=== PATIENT | female | born 1955 | race Caucasian/White ===

== ENCOUNTER 2017-04-18 06:06 | Inpatient (IN) ==
--- NOTE | 2017-04-18 09:54 | General Surgery Consult Note ---
<Olivier Seay - Last Filed: 04/18/17 11:10> Date of Encounter: 04/18/17 Time of Encounter: 09:51 Assessment and Plan (1) Partial small bowel obstruction Current Visit: Yes Status: Acute [facility] CT 04/17: findings suspicious for small bowel obstruction, possible thickened mucosa/wall in the distal stomach. Patient is currently hemodynamically stable with active bowel sounds, and flatulence. - serial abdominal exam - conservative care - bowel rest; NPO diet - NG tube placement - IVF started History of Present Illness Consult date: 04/18/17 Reason for consult: abdominal pain Requesting physician: Catrachito Mack History of present illness: 61 Year old female w/ pmh of COPD, HLD, arthritis, open cholecysectomy, open appendectomy, and open hysterectomy presented to [facility] ED with a 1 day history of Abdominal pain. At [facility], CT abd/pelvis was performed and transferred to [place] due to suspicion of small bowel obstruction. Patient states the pain started yesterday and is sharp and constant. Pain radiates to her Right upper quadrant. She also has associated nausea, vomiting, "feeling hot", and thirst. She states she does not feel hungry but she ate dinner last night without much difficulty. Patient has passed gas last night, but has not had a bowel movement since the day before yesterday. Patient states her abdomen is "more full than usual". Patient denies fever, palpitation, SOB. In the ED, NG tube was attempted twice without success. She states she previously has been told that she had "calcium" build up in her Abdominal aorta in which she takes ASA81. Patient is also on lipitor 40 for high cholesterol. Her last colonoscopy was 3-4 years ago and she was told that she needed a follow up in a year but she was unable to make it. 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 Patient smokes 1 pack a day for the last 40 years. Patient denies drugs or EtOH. Past Med Surg Social Fam HX - Past Medical History Medical history: COPD Psychiatric history: no psych history - Social History Smoking Status: Current every day smoker Packs per day: 1/2- 1 pack a day Smokeless Tobacco Status: No Alcohol use: none Drug use: none Medications and Allergies 3 Allergy/AdvReac Type Severity Reaction Status Date / Time codeine Allergy Chest Pain Verified 04/18/17 09:04 Hydromorphone [From Dilaudid] Allergy Itching Verified 04/18/17 09:04 levofloxacin [From Levaquin] Allergy Hives Verified 04/18/17 09:04 sulfamethoxazole Allergy Hives Verified 04/18/17 09:04 [From Bactrim] trimethoprim [From Bactrim] Allergy Hives Verified 04/18/17 09:04 Review of Systems All systems PM: A 10-system review of systems was performed and is negative for pertinent findings except as documented above in the HPI. - Constitutional as per HPI - EENT Nose, mouth and throat: dry mouth, no abnormal hearing, no dizziness, no dysphagia, no epistaxis, no headache(s) - Cardiovascular no chest pain, no chest pain at rest, no dyspnea, no dyspnea on exertion, no leg edema, no palpitations - Respiratory no cough, no dyspnea, no dyspnea on exertion, no wheezing, no chest congestion - Gastrointestinal abdominal pain, bloating, nausea, vomiting, no belching, no change in bowel habits, no change in stool character, no coffee ground emesis, no constipation, no cramping, no diarrhea, no dyspepsia, no dysphagia, no excessive flatus, no fecal incontinence, no heartburn, no hematemesis, no hematochezia, no loose stools, no melena - Genitourinary Genitourinary: other (prior hysterectomy) Menstruation: as per HPI - Musculoskeletal muscle cramps (left calf) - Integumentary no acne, no alopecia, no erythema, no lesions, no pruritus, no striae, no swelling, no wounds - Neurological no confusion, no convulsions, no dizziness, no loss of vision, no restless legs , no syncope, no vertigo - Psychiatric no anhedonia, no anxiety, no change in appetite, no change in libido, no confusion, no depression, no difficulty concentrating, no irritability - Allergic/Immunologic seasonal rhinorrhea General Surgery Exam Initial Vital Signs Temp Pulse Resp BP Pulse Ox 98.3 F 52 16 129/65 95 04/18/17 08:08 04/18/17 08:08 04/18/17 08:08 04/18/17 08:08 04/18/17 08:08 - General physical appearance well developed, well nourished, moderate distress, severe pain, obese - Eyes normal ocular movement - ENT normal mucosa, no hearing loss, nasal discharge - Neck no masses, no bruits, no venous distension - Respiratory normal expansion, normal respiratory effort, clear to percussion, clear to auscultation - Cardiovascular Cardiovascular exam: Present: RRR, 15, 16 - Abdomen Abdomen general surgery: Present: bowel sounds present, tympanic, distended, tender, guarding (voluntary guarding. no tenderness on percussion.), surgical scars (midline and right lower quadrant). Absent: rebound, rigid Abdominal Tenderness: Present: epigastic, RUQ - Integumentary Integumentary general surgery: Present: warm and dry, no abnormal pigmentation - Neurologic Present: CN 2-12 grossly intact, normal coordination, normal sensation - Musculoskeletal Present: normal gait, normal posture - Psychiatric Psychiatric general surgery: Present: appropriate, oriented to person, oriented to place, oriented to time, speech is normal, memory intact Exam Initial Vital Signs Temp Pulse Resp BP Pulse Ox 98.3 F 52 16 129/65 95 04/18/17 08:08 04/18/17 08:08 04/18/17 08:08 04/18/17 08:08 04/18/17 08:08 Results - Labs 04/18/17 10:35 04/18/17 10:35 All other labs normal. Consult Discharge Plan - Plan Referrals: Mattie Lora MD [Primary Care Provider] - <Will Stark - Last Filed: 04/18/17 11:53> Date of Encounter: 04/18/17 Review of Systems All systems PM: A 10-system review of systems was performed and is negative for pertinent findings except as documented above in the HPI. General Surgery Exam Initial Vital Signs Temp Pulse Resp BP Pulse Ox 98.3 F 52 16 129/65 95 04/18/17 08:08 04/18/17 08:08 04/18/17 08:08 04/18/17 08:08 04/18/17 08:08 Exam Initial Vital Signs Temp Pulse Resp BP Pulse Ox 98.3 F 52 16 129/65 95 04/18/17 08:08 04/18/17 08:08 04/18/17 08:08 04/18/17 08:08 04/18/17 08:08 Results - Labs 04/18/17 10:35 04/18/17 10:35 Abnormal lab results Hgb 11.4 g/dL (11.5-15.4) L 04/18/17 10:35 MCH 27.7 pg (28.0-33.3) L 04/18/17 10:35 MCHC 31.4 g/dL (31.6-35.5) L 04/18/17 10:35 RDW 15.4 % (11.5-14.5) H 04/18/17 10:35 MPV 9.2 fL (9.4-12.4) L 04/18/17 10:35 Chloride 111 mEq/L (98-107) H 04/18/17 10:35 Calcium 8.3 mg/dL (8.6-10.3) L 04/18/17 10:35 AST 129 Units/L (13-39) H 04/18/17 10:35 ALT 65 Units/L (7-52) H 04/18/17 10:35 Alkaline Phosphatase 120 Units/L (34-104) H 04/18/17 10:35 Serum Total Protein 5.5 g/dL (6.4-8.9) L 04/18/17 10:35 Albumin 3.4 g/dL (3.5-5.7) L 04/18/17 10:35 Globulin 2.1 g/dL (2.4-3.5) L 04/18/17 10:35 Diabetes panel 04/18/17 Range/Units 10:35 Sodium 143 (136-145) mEq/L Potassium 4.0 (3.5-5.1) mEq/L Chloride 111 H (98-107) mEq/L Carbon Dioxide 29 (23-29) mEq/L BUN 9 (8-23) mg/dL Creatinine 0.60 (0.60-1.20) mg/dL Glucose 94 (70-105) mg/dL Calcium 8.3 L (8.6-10.3) mg/dL AST 129 H (13-39) Units/L ALT 65 H (7-52) Units/L Alkaline Phosphatase 120 H (34-104) Units/L Albumin 3.4 L (3.5-5.7) g/dL Calcium panel 04/18/17 Range/Units 10:35 Calcium 8.3 L (8.6-10.3) mg/dL Albumin 3.4 L (3.5-5.7) g/dL Pituitary panel 04/18/17 Range/Units 10:35 Sodium 143 (136-145) mEq/L Potassium 4.0 (3.5-5.1) mEq/L Chloride 111 H (98-107) mEq/L Carbon Dioxide 29 (23-29) mEq/L BUN 9 (8-23) mg/dL Creatinine 0.60 (0.60-1.20) mg/dL Glucose 94 (70-105) mg/dL Calcium 8.3 L (8.6-10.3) mg/dL Adrenal panel 04/18/17 Range/Units 10:35 Sodium 143 (136-145) mEq/L Potassium 4.0 (3.5-5.1) mEq/L Chloride 111 H (98-107) mEq/L Carbon Dioxide 29 (23-29) mEq/L BUN 9 (8-23) mg/dL Creatinine 0.60 (0.60-1.20) mg/dL Glucose 94 (70-105) mg/dL Calcium 8.3 L (8.6-10.3) mg/dL Total Bilirubin 0.5 (0.3-1.0) mg/dL AST 129 H (13-39) Units/L ALT 65 H (7-52) Units/L Alkaline Phosphatase 120 H (34-104) Units/L Albumin 3.4 L (3.5-5.7) g/dL All other labs normal. - Attending Attestation patient seen and examined. I have read all pertinent notes and imaging. I agree with the above plan and wish to add the following... 61F s/p open van, EDUARD with nausea and vomiting with CT scan concerning for possible SBO. currently with flatus, last bowel movement ws about 2 days ago; mildly distended on exam; non peritoneal; recommend repeat imaging with contrast (can place NG tube for decompression and GI tract assessment with either UGI with SBFT or CT scan); keep NPO at present and await return of bowel function. replete lytes, judicious use of narcotics; activity as tolerated; ivf ; cares per primary
[2017-04-18] MEDS ORDERED: Lidocaine Jelly 6ml 1 APPL/6 ML JEL.PF.APP MM ONE ×2 (10:32→11:10)
[2017-04-18] MEDS ORDERED: *HR* Morphine 2 MG/ML SYRINGE IVP ONE (10:42)
[2017-04-18 10:43] LABS: Basophils % 0.4 %; Eosinophils # 0.1 K/mcL (0.0-0.6); Eosinophils % 0.5 %; Hematocrit 36.3 % (35.3-44.9); Hemoglobin 11.4 g/dL (11.5-15.4); Immature Granulocytes % 0.3 % (0-4); Lymphocytes # 1.9 K/mcL (0.6-4.6); Lymphocytes % 20.4 %; Mean Corpuscular HGB Conc 31.4 g/dL (31.6-35.5); Mean Corpuscular Hemoglobin 27.7 pg (28.0-33.3); Mean Corpuscular Volume 88.3 fL (83.0-100.0); Mean Platelet Volume 9.2 fL (9.4-12.4); Monocytes # 0.9 K/mcL (0.0-1.3); Monocytes % 9.2 %; Neutrophils # 6.6 K/mcL (1.6-8.9); Platelet Count 266 K/mcL (140-400); Red Blood Count 4.11 M/mcL (3.82-4.97); Red Cell Distribution Width 15.4 % (11.5-14.5); Segmented Neutrophils % 69.2 %
[2017-04-18] MEDS: 0.9 % Sodium Chloride 1,000 ML IVC SCH ×2 (10:57→21:44)
[2017-04-18 11:00] LABS: Alanine Aminotransferase 65 Units/L (7-52); Albumin 3.4 g/dL (3.5-5.7); Albumin/Globulin Ratio 1.6 (1.1-2.2); Alkaline Phosphatase 120 Units/L (34-104); Aspartate Amino Transferase 129 Units/L (13-39); BUN/Creatinine Ratio 15 (6-26); Bilirubin,Total 0.5 mg/dL (0.3-1.0); Blood Urea Nitrogen 9 mg/dL (8-23); Calcium 8.3 mg/dL (8.6-10.3); Carbon Dioxide 29 mEq/L (23-29); Chloride 111 mEq/L (98-107); Globulin 2.1 g/dL (2.4-3.5); Glucose 94 mg/dL (70-105); Osmolality,Calculated 294 (280-300); Sodium 143 mEq/L (136-145); Total Protein 5.5 g/dL (6.4-8.9); eGFR For African Americans > 60 (> 60); eGFR For Non-African Americans > 60 (> 60)
--- NOTE | 2017-04-18 11:17 | Internal Med History&Physical ---
Date of Encounter: 05/16/17 Time of Encounter: 20:00 Assessment and Plan (1) Partial small bowel obstruction Status: Acute - place NG tube for decompression a - keep NPO - Start IV hydration with isotonic fluid - Continue to monitor electrolytes and replete if indicated. (2) COPD not affecting current episode of care Status: Acute The patient is not in any home medication for COPD, we will start PRN BREANNE-NEB. (3) Anemia Status: Acute We will obtain iron studies folic acid and vitamin B12 level Qualifiers: Qualified Code(s): D64.9 - Anemia, unspecified (4) DVT prophylaxis Status: Acute We will place SCD and start heparin 5000 subcutaneous twice a day Internal Medicine - H&P: HPI Chief complaint: abdominal pain Plans for Post Hospital Care: Home History of present illness: Ms. Hernandez is a 61 year old female with past medical history significant of COPD and cholecystectomy who presented from home with her ER with resistant epigastric pain that is radiating to the right quadrant CAT scan of the abdomen and pelvis was suspicious for intestinal obstruction, surgery was consulted and they evaluated the patient and they requested that the patient will be admitted under the hospital service. The patient currently denies any abdominal pain and feeling well in general. Past Med Surg Social Fam HX - Past Medical History Medical history: COPD Psychiatric history: no psych history - Social History Smoking Status: Current every day smoker Packs per day: 1/2- 1 pack a day Smokeless Tobacco Status: No Alcohol use: none Drug use: none Internal Medicine - H&P: Meds Albuterol Sulfate [Ventolin Hfa] 1 - 2 puff IH Q6H PRN 04/18/17 [History] Cetirizine HCl [All Day Allergy] 10 mg PO DAILY 04/18/17 [History] Ibuprofen 800 mg PO TID 04/18/17 [History] Lovastatin 40 mg PO DAILY 04/18/17 [History] Docusate [Colace] 100 mg PO BID PRN #7 capsule 04/20/17 [Rx] Ondansetron ODT [Zofran ODT] 4 mg SL Q8HR PRN #30 tab.rapdis 04/20/17 [Rx] 3 Allergy/AdvReac Type Severity Reaction Status Date / Time codeine Allergy Chest Pain Verified 04/18/17 09:04 Hydromorphone [From Dilaudid] Allergy Itching Verified 04/18/17 09:04 levofloxacin [From Levaquin] Allergy Hives Verified 04/18/17 09:04 sulfamethoxazole Allergy Hives Verified 04/18/17 09:04 [From Bactrim] trimethoprim [From Bactrim] Allergy Hives Verified 04/18/17 09:04 All Systems PM: A 10-system review of systems was performed and is negative for pertinent findings except as documented above in the HPI. - Constitutional Constitutional: no chills, no fever(s), no night sweats - EENT Eyes: no change in vision, no discharge, no pain, no photophobia - Cardiovascular Cardiovascular ROS IM: no chest pain, no diaphoresis, no dyspnea, no lightheadedness, no palpitations, no syncope - Respiratory Respiratory: no cough, no dyspnea, no wheezing, no excessive phlegm production - Gastrointestinal Gastrointestinal: no abdominal pain, no diarrhea, no hematemesis, no hematochezia, no melena, no nausea, no vomiting - Neurological Neurological ROS: no confusion, no convulsions, no focal weakness, no numbness, no tingling, no tremor(s) - Constitutional Vitals: Temp Pulse Resp BP Pulse Ox 98 F 56 15 110/65 93 04/18/17 10:50 04/18/17 10:50 04/18/17 10:50 04/18/17 10:50 04/18/17 10:50 General appearance: Present: A&O X 3 - Head Head exam: Present: atraumatic, normocephalic - Respiratory Respiratory exam: Present: CTAB. Absent: accessory muscle use, rales, rhonchi, wheezes - Cardiovascular Cardiovascular exam: Present: RRR, +S1, +S2. Absent: diastolic murmur, gallop, rubs, systolic murmur - GI/Abdominal GI/Abdominal exam: Present: normal bowel sounds, soft, no peritoneal signs. Absent: distended, tenderness - Extremities Exam Extremities exam: Present: warm, radial pulses palpable and symmetrical. Absent : calf tenderness, cyanotic, pedal edema Internal Med - H&P Results - Labs CBC & Chem 7: 04/19/17 04:40 04/20/17 03:56 Labs: Short CBC 04/18/17 Range/Units 10:35 WBC 9.5 (4.3-11.1) K/mcL Hgb 11.4 L (11.5-15.4) g/dL Hct 36.3 (35.3-44.9) % Plt Count 266 (140-400) K/mcL Neutrophils # 6.6 (1.6-8.9) K/mcL BMP 04/18/17 10:35 Sodium 143 Potassium 4.0 Chloride 111 H Carbon Dioxide 29 BUN 9 Creatinine 0.60 Glucose 94 Calcium 8.3 L Liver Function 04/18/17 Range/Units 10:35 Total Bilirubin 0.5 (0.3-1.0) mg/dL AST 129 H (13-39) Units/L ALT 65 H (7-52) Units/L Alkaline Phosphatase 120 H (34-104) Units/L Albumin 3.4 L (3.5-5.7) g/dL
[2017-04-18] MEDS ORDERED: Chloraseptic Spray 177 ML BOTTLE MM PRN (11:35)
[2017-04-18] MEDS ORDERED: Ondansetron ODT 4 MG TAB.RAPDIS SL PRN (14:10)
[2017-04-18] MEDS ORDERED: Naloxone 0.4 MG/ML INJ IVP PRN (14:10)
[2017-04-18] MEDS ORDERED: Acetaminophen 325 MG TABLET PO PRN (14:10)
[2017-04-18] MEDS ORDERED: Mag Hydrox/Al Hydrox/Simeth 30 ML UDC PO PRN (14:10)
[2017-04-18] MEDS: *HR* Morphine 2 MG/ML SYRINGE IVP PRN ×3 (14:46→22:45)
[2017-04-19] MEDS: *HR* LORazepam 2 MG/ML VIAL IVP PRN ×2 (00:20→17:52)
[2017-04-19 05:45] LABS: BUN/Creatinine Ratio 15 (6-26); Blood Urea Nitrogen 9 mg/dL (8-23); Calcium 8.2 mg/dL (8.6-10.3); Carbon Dioxide 28 mEq/L (23-29); Chloride 111 mEq/L (98-107); Glucose 88 mg/dL (70-105); Osmolality,Calculated 292 (280-300); Potassium 3.7 mEq/L (3.5-5.1); Sodium 142 mEq/L (136-145); eGFR For African Americans > 60 (> 60); eGFR For Non-African Americans > 60 (> 60)
[2017-04-19 07:45] LABS: Basophils % 0.7 %; Eosinophils # 0.1 K/mcL (0.0-0.6); Eosinophils % 1.8 %; Hematocrit 33.8 % (35.3-44.9); Hemoglobin 10.6 g/dL (11.5-15.4); Immature Granulocytes % 0.4 % (0-4); Lymphocytes # 1.5 K/mcL (0.6-4.6); Lymphocytes % 26.9 %; Mean Corpuscular HGB Conc 31.4 g/dL (31.6-35.5); Mean Corpuscular Hemoglobin 27.9 pg (28.0-33.3); Mean Corpuscular Volume 88.9 fL (83.0-100.0); Mean Platelet Volume 10.1 fL (9.4-12.4); Monocytes # 0.7 K/mcL (0.0-1.3); Monocytes % 11.8 %; Neutrophils # 3.3 K/mcL (1.6-8.9); Platelet Count 239 K/mcL (140-400); Red Cell Distribution Width 15.4 % (11.5-14.5); Segmented Neutrophils % 58.4 %
[2017-04-19] MEDS: 0.9 % Sodium Chloride 1,000 ML IVC SCH ×2 (07:50→17:49)
[2017-04-19] MEDS: *HR* Morphine 2 MG/ML SYRINGE IVP PRN ×3 (07:50→21:23)
--- NOTE | 2017-04-19 08:18 | General Surgery Progress Note ---
<Olivier Seay - Last Filed: 04/19/17 12:39> Date of Encounter: 04/19/17 Time of Encounter: 08:16 - Assessment and Plan (1) Partial small bowel obstruction Current Visit: Yes Status: Acute [facility] CT 04/17: findings suspicious for small bowel obstruction, possible thickened mucosa/wall in the distal stomach. Patient is currently hemodynamically stable with active bowel sounds, and flatulence. Patient continues to not have bowel movement. KUB confirmed placement of NG tube. Abdominal distention decreased and pain has resolved since NG tube placement. - serial abdominal exam - conservative care - bowel rest; NPO diet until bowel function returns - IVF started - SBFO w/ gastrografin ordered (2) Tenderness of left calf Current Visit: Yes Status: Acute Risks for DVT include smoking history, HLD, inactivity. Venous duplex negative. unlikely to have DVT. Subjective Patient reports: no new complaints, feels better, still having pain (has improved since yesterday. biggest complaint is annoyance of NG tube), voiding w /o difficulty, flatus, no bowel movement, afebrile Objective Vital Signs - Last 8 Hours Temp Pulse Resp BP Pulse Ox 04/19/17 07:28 97.9 F 61 18 124/69 92 04/19/17 03:26 97.8 F 61 15 116/68 95 Intake and Output 04/18/17 04/19/17 04/19/17 23:59 07:59 15:59 Intake Total 1000 / 1000 1060 / 1060 Output Total 200 / 200 750 / 750 Balance 800 / 800 310 / 310 Intake: IV Fluids 1000 / 1000 1000 / 1000 0.9 % Sodium Chloride 1,000 ML 1000 / 1000 1000 / 1000 @ 100 mls/hr IVC .Q10H MARIE Rx#: [id number] Oral 0 / 0 60 / 60 Output: Urine 200 / 200 350 / 350 Gastric Drainage 400 / 400 Other: Meal NPO # Voids 1 Weight 83.025 kg Blood Glucose* 106 85 Patient Weight 04/19/17 23:59 Weight 83.025 kg - General physical appearance well developed, well nourished, no distress - Eyes PERRL, normal ocular movement - ENT normal pinna, normal nares, normal mucosa, no hearing loss, no congestion - Respiratory normal expansion, normal respiratory effort, clear to percussion, clear to auscultation - Cardiovascular Cardiovascular exam: Present: RRR - Abdomen Abdomen: Present: bowel sounds present, soft, non tender, distended (has improved), tender (epigastric and RUQ, but improved from yesterday). Absent: guarding, rebound - Integumentary no rash, no growths, no abnormal pigmentation - Neurologic normal coordination, normal sensation - Musculoskeletal normal posture - Psychiatric oriented to time, oriented to person, oriented to place, speech is normal, memory intact - Labs 04/19/17 04:40 04/19/17 04:40 Diabetes panel 04/18/17 04/19/17 Range/Units 10:35 04:40 Sodium 143 142 (136-145) mEq/L Potassium 4.0 3.7 (3.5-5.1) mEq/L Chloride 111 H 111 H (98-107) mEq/L Carbon Dioxide 29 28 (23-29) mEq/L BUN 9 9 (8-23) mg/dL Creatinine 0.60 0.59 L (0.60-1.20) mg/dL Glucose 94 88 (70-105) mg/dL Calcium 8.3 L 8.2 L (8.6-10.3) mg/dL AST 129 H (13-39) Units/L ALT 65 H (7-52) Units/L Alkaline Phosphatase 120 H (34-104) Units/L Albumin 3.4 L (3.5-5.7) g/dL Calcium panel 04/18/17 04/19/17 Range/Units 10:35 04:40 Calcium 8.3 L 8.2 L (8.6-10.3) mg/dL Albumin 3.4 L (3.5-5.7) g/dL Pituitary panel 04/18/17 04/19/17 Range/Units 10:35 04:40 Sodium 143 142 (136-145) mEq/L Potassium 4.0 3.7 (3.5-5.1) mEq/L Chloride 111 H 111 H (98-107) mEq/L Carbon Dioxide 29 28 (23-29) mEq/L BUN 9 9 (8-23) mg/dL Creatinine 0.60 0.59 L (0.60-1.20) mg/dL Glucose 94 88 (70-105) mg/dL Calcium 8.3 L 8.2 L (8.6-10.3) mg/dL Adrenal panel 04/18/17 04/19/17 Range/Units 10:35 04:40 Sodium 143 142 (136-145) mEq/L Potassium 4.0 3.7 (3.5-5.1) mEq/L Chloride 111 H 111 H (98-107) mEq/L Carbon Dioxide 29 28 (23-29) mEq/L BUN 9 9 (8-23) mg/dL Creatinine 0.60 0.59 L (0.60-1.20) mg/dL Glucose 94 88 (70-105) mg/dL Calcium 8.3 L 8.2 L (8.6-10.3) mg/dL Total Bilirubin 0.5 (0.3-1.0) mg/dL AST 129 H (13-39) Units/L ALT 65 H (7-52) Units/L Alkaline Phosphatase 120 H (34-104) Units/L Albumin 3.4 L (3.5-5.7) g/dL Consult Discharge Plan - Plan Referrals: Mattie Lora MD [Primary Care Provider] - <Ruth Salinas - Last Filed: 04/19/17 13:49> Date of Encounter: 04/19/17 - Assessment and Plan (1) Small bowel obstruction due to adhesions Current Visit: Yes Status: Acute patient passing flatus today will obtain sbft with gastrograffin and if passes through will dc ngt and start clears continue npo currently continue ngt HOB 30 degrees prn pain control/antiemetics serial abdominal exams patient feels significantly better (2) Hyperlipidemia Current Visit: Yes Status: Chronic hold po home meds currently until start taking in po Qualifiers: Hyperlipidemia type: unspecified Qualified Code(s): E78.5 - Hyperlipidemia , unspecified (3) DVT prophylaxis Current Visit: Yes Status: Acute heparin sq started Subjective Narrative: passing significant consistent flatus, no bm abdominal pain almost totally resolved complaining about ngt feels much better compared to presentation to ED Objective Vital Signs - Last 8 Hours Temp Pulse Resp BP Pulse Ox 04/19/17 11:23 98.1 F 84 18 118/64 92 04/19/17 07:28 97.9 F 61 18 124/69 92 Intake and Output 04/18/17 04/19/17 04/19/17 23:59 07:59 15:59 Intake Total 1000 / 1000 1060 / 1060 0 / 0 Output Total 200 / 200 750 / 750 0 / 0 Balance 800 / 800 310 / 310 0 / 0 Intake: IV Fluids 1000 / 1000 1000 / 1000 0.9 % Sodium Chloride 1,000 ML 1000 / 1000 1000 / 1000 @ 100 mls/hr IVC .Q10H MARIE Rx#: [id number] Oral 0 / 0 60 / 60 0 / 0 Output: Urine 200 / 200 350 / 350 0 / 0 Gastric Drainage 400 / 400 Other: Meal NPO npo # Voids 1 Weight 83.025 kg Blood Glucose* 106 85 70 Patient Weight 04/19/17 23:59 Weight 83.025 kg - General physical appearance well developed, well nourished, no distress, obese - Eyes PERRL, normal ocular movement - ENT normal mucosa, normocephalic - Neck Neck exam: trachea midline - Respiratory normal expansion, clear to auscultation - Cardiovascular Cardiovascular exam: Present: RRR - Abdomen Abdomen: Present: bowel sounds present, soft, non tender, rebound. Absent: distended, guarding - Integumentary no rash, no growths, no abnormal pigmentation - Neurologic normal coordination, normal sensation - Musculoskeletal normal posture - Psychiatric oriented to time, oriented to person, oriented to place, speech is normal, memory intact - Labs 04/19/17 04:40 04/19/17 04:40 Diabetes panel 04/19/17 Range/Units 04:40 Sodium 142 (136-145) mEq/L Potassium 3.7 (3.5-5.1) mEq/L Chloride 111 H (98-107) mEq/L Carbon Dioxide 28 (23-29) mEq/L BUN 9 (8-23) mg/dL Creatinine 0.59 L (0.60-1.20) mg/dL Glucose 88 (70-105) mg/dL Calcium 8.2 L (8.6-10.3) mg/dL Calcium panel 04/19/17 Range/Units 04:40 Calcium 8.2 L (8.6-10.3) mg/dL Pituitary panel 04/19/17 Range/Units 04:40 Sodium 142 (136-145) mEq/L Potassium 3.7 (3.5-5.1) mEq/L Chloride 111 H (98-107) mEq/L Carbon Dioxide 28 (23-29) mEq/L BUN 9 (8-23) mg/dL Creatinine 0.59 L (0.60-1.20) mg/dL Glucose 88 (70-105) mg/dL Calcium 8.2 L (8.6-10.3) mg/dL Adrenal panel 04/19/17 Range/Units 04:40 Sodium 142 (136-145) mEq/L Potassium 3.7 (3.5-5.1) mEq/L Chloride 111 H (98-107) mEq/L Carbon Dioxide 28 (23-29) mEq/L BUN 9 (8-23) mg/dL Creatinine 0.59 L (0.60-1.20) mg/dL Glucose 88 (70-105) mg/dL Calcium 8.2 L (8.6-10.3) mg/dL - Attending Attestation I examined this patient and my medical decision-making was reviewed with the Resident Physician. I agree with the documented findings, disposition and treatment plan as described except to the extent set forth below.
[2017-04-19] MEDS ORDERED: Ondansetron 4 MG/2 ML VIAL IVP ONE (13:00)
--- NOTE | 2017-04-19 17:08 | Internal Med Progress Note ---
Date of Encounter: 04/19/17 Time of Encounter: 10:10 - Assessment and plan (1) Partial small bowel obstruction Current Visit: Yes Status: Acute Assessment and plan: Acute bronchospasm obstruction with thickened mucosa in the distal stomach - symptoms slowly improving NPO, NG tube decompression, conservative management of fluids Gen. surgery following patient - appreciate input Labs in a.m., monitor closely (2) COPD (chronic obstructive pulmonary disease) Current Visit: Yes Status: Chronic Assessment and plan: Stable, not in exacerbation Albuterol as needed Qualifiers: COPD type: unspecified COPD Qualified Code(s): J44.9 - Chronic obstructive pulmonary disease, unspecified (3) Hyperlipidemia Current Visit: Yes Status: Chronic Assessment and plan: Continue home dose of Lovastatin and patient is taking PO Qualifiers: Hyperlipidemia type: unspecified Qualified Code(s): E78.5 - Hyperlipidemia , unspecified (4) DVT prophylaxis Current Visit: Yes Status: Acute Assessment and plan: Heparin subcutaneous - Time Spent With Patient 25 - 35 minutes - Subjective Interval history: Examined this morning. Patient is awake and alert. Not in any distress. Denies chest pain or shortness of breath. No fever. Hemodynamically stable. States her abdominal pain is better. NG tube in place. States she feels better overall. No other acute events or complaints. Admitted for partial small bowel obstruction. Symptoms are currently improving. - Constitutional Vitals: Temp Pulse Resp BP Pulse Ox 98.0 F 51 18 143/66 94 04/19/17 16:20 04/19/17 16:20 04/19/17 16:20 04/19/17 16:20 04/19/17 16:20 General appearance: Present: cooperative, A&O X 3, pleasant, no acute distress, answers questions appropriately - Head Head exam: Present: atraumatic - Eye Eye exam: Present: EOMI - ENT ENT exam: Present: mucous membranes dry Additional comments: NG tube in place - Respiratory Respiratory exam: Present: CTAB. Absent: accessory muscle use, chest wall tenderness, rales, respiratory distress, rhonchi, wheezes, tachypnea - Cardiovascular Cardiovascular exam: Present: RRR, +S1, +S2 - GI/Abdominal GI/Abdominal exam: Present: diminished bowel sounds, distended (Slightly distended), soft, no peritoneal signs. Absent: firm, guarding, tenderness - Extremities Exam Extremities exam: Present: radial pulses palpable and symmetrical. Absent: calf tenderness, cyanotic, pedal edema - Neurological Exam Neurological exam: Present: alert, oriented X3, no focal deficits. Absent: facial droop, speech deficit Internal Medicine: Result - Labs CBC & Chem 7: 04/19/17 04:40 04/19/17 04:40 Labs: Short CBC 04/19/17 Range/Units 04:40 WBC 5.7 (4.3-11.1) K/mcL Hgb 10.6 L (11.5-15.4) g/dL Hct 33.8 L (35.3-44.9) % Plt Count 239 (140-400) K/mcL Neutrophils # 3.3 (1.6-8.9) K/mcL BMP 04/19/17 04:40 Sodium 142 Potassium 3.7 Chloride 111 H Carbon Dioxide 28 BUN 9 Creatinine 0.59 L Glucose 88 Calcium 8.2 L Consult Discharge Plan - Plan Referrals: Mattie Lora MD [Primary Care Provider] -
[2017-04-19] MEDS: *HR* Heparin 5,000 UNIT/ML VIAL SQ SCH (17:55)
[2017-04-20] MEDS: *HR* Morphine 2 MG/ML SYRINGE IVP PRN (02:14)
[2017-04-20 04:38] LABS: Alanine Aminotransferase 73 Units/L (7-52); Albumin 3.4 g/dL (3.5-5.7); Albumin/Globulin Ratio 1.5 (1.1-2.2); Alkaline Phosphatase 136 Units/L (34-104); Aspartate Amino Transferase 49 Units/L (13-39); BUN/Creatinine Ratio 16 (6-26); Bilirubin,Total 0.5 mg/dL (0.3-1.0); Blood Urea Nitrogen 8 mg/dL (8-23); Calcium 8.4 mg/dL (8.6-10.3); Carbon Dioxide 25 mEq/L (23-29); Chloride 111 mEq/L (98-107); Globulin 2.3 g/dL (2.4-3.5); Glucose 84 mg/dL (70-105); Osmolality,Calculated 294 (280-300); Potassium 3.6 mEq/L (3.5-5.1); Sodium 143 mEq/L (136-145); Total Protein 5.7 g/dL (6.4-8.9); eGFR For African Americans > 60 (> 60); eGFR For Non-African Americans > 60 (> 60)
[2017-04-20] MEDS: 0.9 % Sodium Chloride 1,000 ML IVC SCH (05:33)
[2017-04-20] MEDS: *HR* Heparin 5,000 UNIT/ML VIAL SQ SCH (05:34)
--- NOTE | 2017-04-20 11:17 | General Surgery Progress Note ---
<Ericka Brar - Last Filed: 04/20/17 11:57> Date of Encounter: 04/20/17 Time of Encounter: 08:40 - Assessment and Plan (1) Partial small bowel obstruction Current Visit: Yes Status: Acute Shree CT 04/17/17--findings suspicious for small bowel obstruction, possible thickened mucosa/wall in the distal stomach Small bowel follow through 04/19/17--no focal abnormalities, strictures, or obstructions; delayed transit time from small bowel to colon Bowel function appears to have returned--bowel movement and flatus since yesterday NG tube removed Plan/Recommendations: -Start clear liquid diet, advance as tolerated -Replace electrolytes as needed Subjective Patient reports: no new complaints, feels better, pain is less, flatus, bowel movement Narrative: Seen and examined this morning at bedside. Patient states she is feeling well this morning, improved over yesterday. She has no complaints at this time and would like to eat. Objective Vital Signs - Last 8 Hours Temp Pulse Resp BP Pulse Ox 04/20/17 10:46 98.2 F 53 16 120/66 97 04/20/17 07:29 98.0 F 57 16 123/71 90 04/20/17 03:35 98.3 F 50 16 126/68 92 Intake and Output 04/19/17 04/20/17 04/20/17 23:59 07:59 15:59 Intake Total 1000 / 1000 1000 / 1000 480 / 480 Output Total 0 / 0 0 / 0 Balance 1000 / 1000 1000 / 1000 480 / 480 Intake: IV Fluids 1000 / 1000 1000 / 1000 0.9 % Sodium Chloride 1,000 ML 1000 / 1000 1000 / 1000 @ 100 mls/hr IVC .Q10H MARIE Rx#: [id number] Oral 0 / 0 480 / 480 Output: Urine 0 / 0 0 / 0 Other: Meal NPO Breakfast Percent of Meal Consumed 0% Stool Size Large Stool Consistency liquid soft Stool Characteristics Normal for Patient Stool Color Brown # Voids 1 1 1 # Bowel Movements 1 0 0 Weight 83.2 kg Blood Glucose* 88 Patient Weight 04/20/17 23:59 Weight 83.2 kg - General physical appearance well developed, well nourished, no distress - Eyes normal ocular movement - Respiratory normal expansion, normal respiratory effort - Cardiovascular Cardiovascular exam: Present: bradycardia (asymptomatic), regular rhythm - Neurologic CN 2-12 grossly intact, other (no focal neuro deficits; alert; oriented x3) - Psychiatric speech is normal - Labs 04/19/17 04:40 04/20/17 03:56 Diabetes panel 04/20/17 Range/Units 03:56 Sodium 143 (136-145) mEq/L Potassium 3.6 (3.5-5.1) mEq/L Chloride 111 H (98-107) mEq/L Carbon Dioxide 25 (23-29) mEq/L BUN 8 (8-23) mg/dL Creatinine 0.50 L (0.60-1.20) mg/dL Glucose 84 (70-105) mg/dL Calcium 8.4 L (8.6-10.3) mg/dL AST 49 H (13-39) Units/L ALT 73 H (7-52) Units/L Alkaline Phosphatase 136 H (34-104) Units/L Albumin 3.4 L (3.5-5.7) g/dL Calcium panel 04/20/17 Range/Units 03:56 Calcium 8.4 L (8.6-10.3) mg/dL Albumin 3.4 L (3.5-5.7) g/dL Pituitary panel 04/20/17 Range/Units 03:56 Sodium 143 (136-145) mEq/L Potassium 3.6 (3.5-5.1) mEq/L Chloride 111 H (98-107) mEq/L Carbon Dioxide 25 (23-29) mEq/L BUN 8 (8-23) mg/dL Creatinine 0.50 L (0.60-1.20) mg/dL Glucose 84 (70-105) mg/dL Calcium 8.4 L (8.6-10.3) mg/dL Adrenal panel 04/20/17 Range/Units 03:56 Sodium 143 (136-145) mEq/L Potassium 3.6 (3.5-5.1) mEq/L Chloride 111 H (98-107) mEq/L Carbon Dioxide 25 (23-29) mEq/L BUN 8 (8-23) mg/dL Creatinine 0.50 L (0.60-1.20) mg/dL Glucose 84 (70-105) mg/dL Calcium 8.4 L (8.6-10.3) mg/dL Total Bilirubin 0.5 (0.3-1.0) mg/dL AST 49 H (13-39) Units/L ALT 73 H (7-52) Units/L Alkaline Phosphatase 136 H (34-104) Units/L Albumin 3.4 L (3.5-5.7) g/dL Consult Discharge Plan - Plan Referrals: Mattie Lora MD [Primary Care Provider] - <Will Stark - Last Filed: 04/20/17 12:40> Date of Encounter: 04/20/17 Objective Vital Signs - Last 8 Hours Temp Pulse Resp BP Pulse Ox 04/20/17 10:46 98.2 F 53 16 120/66 97 04/20/17 07:29 98.0 F 57 16 123/71 90 Intake and Output 04/19/17 04/20/17 04/20/17 23:59 07:59 15:59 Intake Total 1000 / 1000 1000 / 1000 480 / 480 Output Total 0 / 0 0 / 0 Balance 1000 / 1000 1000 / 1000 480 / 480 Intake: IV Fluids 1000 / 1000 1000 / 1000 0.9 % Sodium Chloride 1,000 ML 1000 / 1000 1000 / 1000 @ 100 mls/hr IVC .Q10H MARIE Rx#: [id number] Oral 0 / 0 480 / 480 Output: Urine 0 / 0 0 / 0 Other: Meal NPO Breakfast Percent of Meal Consumed 0% Stool Size Large Stool Consistency liquid soft Stool Characteristics Normal for Patient Stool Color Brown # Voids 1 1 1 # Bowel Movements 1 0 0 Weight 83.2 kg Blood Glucose* 88 Patient Weight 04/20/17 23:59 Weight 83.2 kg - Labs 04/19/17 04:40 04/20/17 03:56 Diabetes panel 04/20/17 Range/Units 03:56 Sodium 143 (136-145) mEq/L Potassium 3.6 (3.5-5.1) mEq/L Chloride 111 H (98-107) mEq/L Carbon Dioxide 25 (23-29) mEq/L BUN 8 (8-23) mg/dL Creatinine 0.50 L (0.60-1.20) mg/dL Glucose 84 (70-105) mg/dL Calcium 8.4 L (8.6-10.3) mg/dL AST 49 H (13-39) Units/L ALT 73 H (7-52) Units/L Alkaline Phosphatase 136 H (34-104) Units/L Albumin 3.4 L (3.5-5.7) g/dL Calcium panel 04/20/17 Range/Units 03:56 Calcium 8.4 L (8.6-10.3) mg/dL Albumin 3.4 L (3.5-5.7) g/dL Pituitary panel 04/20/17 Range/Units 03:56 Sodium 143 (136-145) mEq/L Potassium 3.6 (3.5-5.1) mEq/L Chloride 111 H (98-107) mEq/L Carbon Dioxide 25 (23-29) mEq/L BUN 8 (8-23) mg/dL Creatinine 0.50 L (0.60-1.20) mg/dL Glucose 84 (70-105) mg/dL Calcium 8.4 L (8.6-10.3) mg/dL Adrenal panel 04/20/17 Range/Units 03:56 Sodium 143 (136-145) mEq/L Potassium 3.6 (3.5-5.1) mEq/L Chloride 111 H (98-107) mEq/L Carbon Dioxide 25 (23-29) mEq/L BUN 8 (8-23) mg/dL Creatinine 0.50 L (0.60-1.20) mg/dL Glucose 84 (70-105) mg/dL Calcium 8.4 L (8.6-10.3) mg/dL Total Bilirubin 0.5 (0.3-1.0) mg/dL AST 49 H (13-39) Units/L ALT 73 H (7-52) Units/L Alkaline Phosphatase 136 H (34-104) Units/L Albumin 3.4 L (3.5-5.7) g/dL - Attending Attestation Patient seen and examined; no notes, labs, and imaging reviewed by me. I agree with the follow plan and wish to add the following 61F currently with resolved SBO; tolerating diet; non peritoneal - advance diet as tolerated - cares per primary team - feel free to call with questions or new concerns
[2017-04-20 15:17] VITALS: BP 137/75
--- NOTE | 2017-04-20 16:23 | Discharge Summary ---
Date of Encounter: 04/20/17 Time of Encounter: 09:30 - Discharge Diagnosis (1) Partial small bowel obstruction Priority: Primary Status: Acute Comments: Acute small bowel obstruction with thickened mucosa in the distal stomach - symptoms now resolved Treated with NPO, NG tube decompression, conservative management Patient now tolerating oral diet well, she also had several bowel movements Gen. surgery following patient - appreciate input Advised to return if symptoms worsen, follow up with primary care physician (2) COPD (chronic obstructive pulmonary disease) Priority: Primary Status: Chronic Comments: Stable, not in exacerbation Albuterol as needed Qualifiers: COPD type: unspecified COPD Qualified Code(s): J44.9 - Chronic obstructive pulmonary disease, unspecified (3) Hyperlipidemia Priority: Primary Status: Chronic Comments: Continue Lovastatin Qualifiers: Hyperlipidemia type: unspecified Qualified Code(s): E78.5 - Hyperlipidemia , unspecified - Discharge Medications Prescriptions: RX: Ondansetron ODT [Zofran ODT] 4 mg SL Q8HR PRN #30 tab.rapdis PRN Reason: Nausea And Vomiting RX: Docusate [Colace] 100 mg PO BID PRN #7 capsule PRN Reason: Constipation Home Medications: RX: Albuterol Sulfate [Ventolin Hfa] 1 - 2 puff IH Q6H PRN 04/18/17 [History] RX: Cetirizine HCl [All Day Allergy] 10 mg PO DAILY 04/18/17 [History] RX: Ibuprofen 800 mg PO TID 04/18/17 [History] RX: Lovastatin 40 mg PO DAILY 04/18/17 [History] RX: Docusate [Colace] 100 mg PO BID PRN #7 capsule 04/20/17 [Rx] RX: Ondansetron ODT [Zofran ODT] 4 mg SL Q8HR PRN #30 tab.rapdis 04/20/17 [Rx] Allergies/Adverse Reactions: 3 Allergy/AdvReac Type Severity Reaction Status Date / Time codeine Allergy Chest Pain Verified 04/18/17 09:04 Hydromorphone [From Dilaudid] Allergy Itching Verified 04/18/17 09:04 levofloxacin [From Levaquin] Allergy Hives Verified 04/18/17 09:04 sulfamethoxazole Allergy Hives Verified 04/18/17 09:04 [From Bactrim] trimethoprim [From Bactrim] Allergy Hives Verified 04/18/17 09:04 Procedures/tests Complete & Pending: Procedures Performed prior 72 hours Category Date Time Status Venous Doppler [EV venous imaging LE BI] Stat Y 04/18/17 10:32 Completed Date of admission: 04/18/17 16:51 Primary care physician: Mattie Lora MD Consults: 04/19/17 07:41 Consult to Surgery [CONS] Routine Consulting Provider: Surgery [facility] Reason for Consult: partial SBO Call Completed: Yes Anticipated date of discharge: 04/20/17 - Patient Status Disposition: Home, Self-Care Condition: Good Functional capacity at discharge: independent ambulation Overall status at discharge: patient is back to baseline - Discharge Instructions Instructions: Ondansetron (By mouth), Chronic Obstructive Pulmonary Disease (DC ), Anemia (GEN) Follow Up With: Mattie Lora MD [Primary Care Provider] - - Diet and Activity Activity: increase activity as tolerated, resume usual activities as tolerated Diet: low fat, low cholesterol Hospital course: Ms. Hernandez is a 61 year old female with past medical history of COPD and hyperlipidemia. Patient presented to the ED with complaints of abdominal pain and bloating. Patient was initially seen at [facility] and then transferred here. There was suspicion for small bowel obstruction. Patient stated that the pain is sharp and constant. Mainly in the epigastric region and radiating to the right upper quadrant. Patient does have history of cholecystectomy. Patient also had associated nausea with several episodes of vomiting. Patient does smoke about 1 pack of cigarettes daily. Last colonoscopy was about 3-4 years ago. Patient was admitted for acute partial small bowel obstruction. NG tube was inserted and connected to low intermittent wall suction. Patient's symptoms of abdominal pain and distention slowly improved and they have now resolved. Patient was started on clear liquid diet and tolerated well. Patient is a bleeding well and had no other acute events or complications during her stay in the hospital. General surgery has evaluated the patient. No further recommendations at this time. Advised to advance diet as tolerated. Patient states she feels better and wants to go home today. Comfortable more days stay in the hospital but she would rather go home. Advised return if symptoms worsen. Advised follow-up with primary care physician. Patient and were explained about condition and plan of care in detail. They understood and agreed. No unanswered questions. - Time Spent with Patient Total time spent providing and/or coordinating discharge services: Less than 30 minutes - Constitutional Vitals: Temp Pulse Resp BP Pulse Ox 99.3 F 53 16 137/75 93 04/20/17 15:15 04/20/17 15:15 04/20/17 15:15 04/20/17 15:15 04/20/17 15:15 General appearance: Present: cooperative, A&O X 3, pleasant, no acute distress, answers questions appropriately - Head Head exam: Present: atraumatic - Eye Eye exam: Present: EOMI - ENT ENT exam: Present: mucous membranes moist - Respiratory Respiratory exam: Present: CTAB. Absent: accessory muscle use, chest wall tenderness, rales, respiratory distress, rhonchi, wheezes, tachypnea - Cardiovascular Cardiovascular exam: Present: RRR, +S1, +S2 - GI/Abdominal GI/Abdominal exam: Present: soft, no peritoneal signs. Absent: distended, firm , guarding, tenderness - Extremities Exam Extremities exam: Present: radial pulses palpable and symmetrical. Absent: calf tenderness, cyanotic, pedal edema - Neurological Exam Neurological exam: Present: alert, oriented X3, no focal deficits. Absent: facial droop, speech deficit
== END 2017-04-20 17:00 | disposition home or self-care (01) | DRG 247 ==
LOC: 1ANU
PROVIDERS: ADMIT Internal Medicine Hematology & Oncology; ATTEND Internal Medicine